=== PATIENT | female | born 2000 | race Caucasian/White ===

== ENCOUNTER 2019-01-06 18:37 | Emergency (ER) | payer BC ==
[~2019-01-06] VITALS: Ht 167.6 cm; Wt 87.3 kg
[2019-01-06 18:50] VITALS: BP 127/73; TEMP 97.8
[2019-01-06 20:37] LABS: BASO % 0.4 % (0.0-2.0); EOS # 0.3 (0.0-0.7); GRAN # 4.2 (1.4-6.5); GRAN % 51.3 % (42.2-75.2); HEMATOCRIT 44.7 % (35.0-45.0); HEMOGLOBIN 15.3 g/dl (12.0-15.0); LYMPH # 3.2 (1.2-3.4); LYMPH % 39.3 % (20.0-51.0); MEAN CELL VOLUME 91 fl (80.0-95.0); MEAN CORPUSCULAR HEMOGLOBIN 31 pg (26.0-32.0); MEAN CORPUSCULAR HGB CONC 34 g/dl (33.0-37.0); MEAN PLATELET VOLUME 10.5 fl (7.4-10.4); MONO # 0.5 (0.1-0.6); MONO % 5.9 % (1.7-9.3); PLATELET COUNT 272 K/mm3 (130-400); RED BLOOD COUNT 4.93 M/mm3 (4.10-5.30); REDCELL DISTRIBUTION WIDTH-CV 12.2 % (11.5-14.5)
[2019-01-06] MEDS ORDERED: LEXAPRO20 MG PO (20:37)
[2019-01-06 20:48] LABS: CALCIUM 9.9 mg/dL (8.4-10.2); CREATININE, serum 0.7 (0.52-1.25); POTASSIUM 3.9 mmol/L (3.4-5.0)
[2019-01-06 21:19] LABS: THYROID STIMULATING HORMONE 3.75 uIU/mL (0.465-4.680)
[2019-01-06 21:49] VITALS: PULSE 89
== END 2019-01-06 21:46 | disposition home or self-care (01) ==
LOC: COL.ER 18:37
PROVIDERS: Emergency Medicine
DX: N93.9 Abnormal uterine and vaginal bleeding, unspecified (principal); Z97.5 Presence of (intrauterine) contraceptive device

== ENCOUNTER → 2019-01-08 | Outpatient (CLI) | payer BC ==
[~2019-01-08] MED LIST: LEXAPRO20 MG PO
== END ==
LOC: COL.RAD 14:59
DX: O46.90 Antepartum hemorrhage, unspecified, unspecified trimester (principal); Z3A.00 Weeks of gestation of pregnancy not specified; Z97.5 Presence of (intrauterine) contraceptive device